=== PATIENT | female | born 1960 | race Caucasian/White ===

== ENCOUNTER → 2020-12-23 | Outpatient (CLI) | payer BC | LOC: CT 07:52 | DX: C20 Malignant neoplasm of rectum (principal); I11.9 Hypertensive heart disease without heart failure; E78.5 Hyperlipidemia, unspecified; R91.1 Solitary pulmonary nodule | CPT/HCPCS: 71270; 74170; Q9967 ==

== ENCOUNTER → 2022-02-12 | Outpatient (CLI) | payer BC | LOC: MAMO 10:00 | DX: Z12.31 Encounter for screening mammogram for malignant neoplasm of breast (principal) | CPT/HCPCS: 77063; 77067 ==

== ENCOUNTER → 2022-04-29 | Outpatient (CLI) | payer BC | LOC: CT 08:58 | DX: C20 Malignant neoplasm of rectum (principal); R91.8 Other nonspecific abnormal finding of lung field | CPT/HCPCS: 36415; 71260; 82565; Q9967 ==